=== PATIENT | male | born 1990 | race African-American/Black ===

== ENCOUNTER 2020-12-16 04:56 | Emergency (ER) | payer BC ==
--- NOTE | 2020-12-16 05:36 | EDM.PDOC ---
ED HPI GENERAL MEDICAL PROBLEM - General Chief Complaint: Respiratory Problem Stated Complaint: HEADACHE/CHILLS Time Seen by Provider: 12/16/20 05:14 Source of Information: Reports: Patient History Limitations: Reports: No Limitations - History of Present Illness INITIAL COMMENTS - FREE TEXT/NARRATIVE: Mr. Alfaro is a very pleasant 30-year-old gentleman who now presents the ED stating that he has had body aches, lethargy, a headache, a nonproductive cough, dyspnea, a sore throat, and chills without fever since , 12/13/2020. He denies a loss of taste or smell, nausea, vomiting, constipation, or diarrhea. He has been taking DayQuil, NyQuil, and Sanchez's cough syrup, which he thought was working, up until this morning. Here in the ED, the patient's initial BP is found to be slightly elevated at 136/102, otherwise, he is hemodynamically stable, afebrile, saturating 96% on room air. He appears to be relatively comfortable, in no acute distress. Prior to , the patient denies having a recent fever, chills, sore throat, ear pain, nasal or sinus congestion, cough, dyspnea, chest pain, palpitations, nausea, vomiting, constipation, diarrhea, abdominal pain, urinary symptoms, recent weight gain or weight loss, recent bloody bowel movements or black bowel movements, recent joint aches, headaches, or rashes. The patient does not have a PCP. He has not received a COVID vaccination. Headache Pain Score (Numeric/FACES): 4 - Related Data Allergies Allergy/AdvReac Type Severity Reaction Status Date / Time pollen extracts Allergy Other Verified 12/16/20 05:13 Home Meds: Home Meds . [No Known Home Meds] 12/16/20 [History] Past Medical History HEENT History: Reports: Allergic Rhinitis Endocrine/Metabolic History: Reports: Obesity/BMI 30+ Social & Family History - Tobacco Use Tobacco Use Status *Q: Never Tobacco User - Alcohol Use Alcohol Use History: Yes Alcohol Use Frequency: Socially (occasionally to excess) - Recreational Drug Use Recreational Drug Use: Yes Drug Use in Last 12 Months: No Recreational Drug Type: Reports: Marijuana/Hashish (last smoked 2018) - Living Situation & Occupation Living situation: Reports: Single, Other (Roommate) Occupation: Employed (charter driver) ED ROS GENERAL - Review of Systems Review Of Systems: Comprehensive ROS is negative, except as noted in HPI. ED EXAM, GENERAL - Physical Exam Exam: See Below Exam Limited By: No Limitations General Appearance: Alert, WD/WN, No Apparent Distress Eye Exam: Bilateral Eye: EOMI, Normal Inspection Ears: Normal External Exam, Normal Canal, Hearing Grossly Normal, Normal TMs Nose: Normal Inspection, Normal Mucosa, No Blood Throat/Mouth: Normal Inspection, Normal Lips, Normal Teeth, Normal Gums, Normal Oropharynx, Normal Voice, No Airway Compromise Head: Atraumatic, Normocephalic Neck: Normal Inspection, Supple, Non-Tender, Full Range of Motion. No: Lymphadenopathy (L), Lymphadenopathy (R) Respiratory/Chest: No Respiratory Distress, Lungs Clear, Normal Breath Sounds, No Accessory Muscle Use. No: Decreased Breath Sounds, Crackles, Rhonchi, Wheezing, Stridor, Prolonged Expiration Cardiovascular: Normal Peripheral Pulses, Regular Rate, Rhythm, No Edema, No Gallop, No JVD, No Murmur, No Rub Peripheral Pulses: 3+: Radial (L), Radial (R) GI/Abdominal: Normal Bowel Sounds, Soft, Non-Tender, No Organomegaly, No Distention, No Abnormal Bruit, No Mass Back Exam: Normal Inspection, Full Range of Motion, NT Extremities: Normal Inspection, Normal Range of Motion, No Pedal Edema, Normal Capillary Refill Neurological: Alert, Oriented, Normal Cognition, No Motor/Sensory Deficits Psychiatric: Normal Affect Skin Exam: Warm, Dry, Intact, Normal Color, No Rash Course - Vital Signs Last Recorded V/S: Last Vital Signs Temp 37.3 C 12/16/20 05:14 Pulse 93 12/16/20 05:14 Resp 15 12/16/20 05:14 BP 136/102 H 12/16/20 05:14 Pulse Ox 96 12/16/20 05:14 - Orders/Labs/Meds Orders: Active Orders 24 hr Category Date Time Status Chest 1V Frontal [CR] Stat Exams 12/16/20 05:29 Taken Isolation [COMM] Routine Oth 12/16/20 05:30 Ordered Labs: Laboratory Tests 12/16/20 12/16/20 12/16/20 Range/Units 05:35 06:10 06:10 WBC 3.88 L (4.23-9.07) K/mm3 RBC 4.66 (4.63-6.08) M/mm3 Hgb 14.2 (13.7-17.5) gm/dl Hct 43.7 (40.1-51.0) % MCV 93.8 H (79.0-92.2) fl MCH 30.5 (25.7-32.2) pg MCHC 32.5 (32.2-35.5) g/dl RDW Std Deviation 46.5 H (35.1-43.9) fL Plt Count 216 (163-337) K/mm3 MPV 10.3 (9.4-12.3) fl Neutrophils % (Manual) 20 L (40-60) % Band Neutrophils % 0 (0-10) % Lymphocytes % (Manual) 48 H (20-40) % Atypical Lymphs % 22 % Monocytes % (Manual) 6 (2-10) % Eosinophils % (Manual) 2 (0.8-7.0) % Basophils % (Manual) 2 H (0.2-1.2) Platelet Estimate Adequate Plt Morphology Comment Normal RBC Morph Comment Normal Sodium 144 (136-145) mEq/L Potassium 3.9 (3.5-5.1) mEq/L Chloride 109 H (98-107) mEq/L Carbon Dioxide 23 (21-32) mEq/L Anion Gap 15.9 H (5-15) BUN 11 (7-18) mg/dL Creatinine 1.0 (0.7-1.3) mg/dL Est Cr Clr Drug Dosing 99.24 mL/min Estimated GFR (MDRD) > 60 (>60) mL/min BUN/Creatinine Ratio 11.0 L (14-18) Glucose 102 H (70-99) mg/dL Calcium 8.2 L (8.5-10.1) mg/dL Total Bilirubin 0.3 (0.2-1.0) mg/dL AST 255 H (15-37) U/L ALT 116 H (16-63) U/L Alkaline Phosphatase 51 (46-116) U/L C-Reactive Protein 1.1 H* (<1.0) mg/dL Total Protein 6.8 (6.4-8.2) g/dl Albumin 3.6 (3.4-5.0) g/dl Globulin 3.2 gm/dL Albumin/Globulin Ratio 1.1 (1-2) SARS-CoV-2 RNA (LUPIS) Negative (NEGATIVE) Group A Strep (PCR) Not detected (NOT DETECT) - Re-Assessments/Exams Free Text/Narrative Re-Assessment/Exam: 12/16/20 05:31 I collected a group A strep by PCR swab. I have ordered a work-up that includes some blood work, a swab for the SARS-CoV-2 virus and influenza A + B, and a portable chest x-ray. 12/16/20 06:59 Portable chest radiograph reviewed. Poor inspiratory effort. The cardiac silhouette is within normal limits. No pulmonary vascular congestion. No pleural effusions seen on this AP view. No focal infiltrate. No pneumothorax. Formal read per the Radiologist pending. 12/16/20 07:09 The patient's CBC is remarkable for leukopenia of 3.88, with remainder of his CBC being unremarkable. His CMP is remarkable for slight hyperglycemia of 102, and is otherwise unremarkable. His CRP is mildly elevated at 1.1. His swab for group A strep by PCR is negative. His swab for the SARS-CoV-2 virus is negative. His swab for influenza A + B negative for both. 12/16/20 07:14 Test results discussed with the patient. As above, today's work-up is grossly unremarkable, however, I explained to the patient that that does not mean that he does not have COVID-19 - he still might, despite having a negative test, since the sensitivity of the test is poor early in the course of the illness. It is nearly 100% sensitive 5 to 7 days in the course of the illness, however, therefore I am recommending that the patient strictly isolate, then get retested this coming , 12/20/2020. I will provide a note for him to be off work through Thursday. I recommended that the patient take OTC ibuprofen as needed for discomfort, but to stop taking the OTC cough and cold remedies, as they have been shown to be of no benefit. The patient expressed understanding and agreement. Departure - Departure Time of Disposition: 07:16 Disposition: Home, Self-Care 01 Condition: Good Clinical Impression: Viral illness - Discharge Information *PRESCRIPTION DRUG MONITORING PROGRAM REVIEWED*: Not Applicable *COPY OF PRESCRIPTION DRUG MONITORING REPORT IN PATIENT GRACIELA: Not Applicable Instructions: Viral Illness, Adult Referrals: PCP,None [Primary Care Provider] - Forms: ED Department Discharge, ED Return to Work/School Form Additional Instructions: You were seen in the emergency room for 2 days of a sore throat, body aches, chills, lethargy, headache, a dry cough, and shortness of breath. Work-up in the ER included several blood tests, swabs for strep, influenza, and the SARS-CoV-2 virus, and a chest x-ray. Your work-up was grossly unremarkable. You do not have pneumonia. As discussed, a negative test for the SARS-CoV-2 virus early in the course of the illness does not mean that you do not have COVID-19. You still might, however, it may be too early to test positive. We therefore recommend that you get retested this coming , 12/20/2020. It is very important that you quarantine until you test negative on . If you test positive on , you will need to strictly isolate until you test negative, which is typically 10 days after the onset of your symptoms. A note to be off work through 12/21/2020 has been provided to you. We recommend that you take [id number] ibuprofen as needed for discomfort, however, we recommend that you discontinue the [id number] cough and cold remedies, as they have been shown to be of no benefit, but do have side effects, such as an upset stomach. If any other problems, including worsening of your symptoms, please do not hesitate to return to the ER. Sepsis Event Note (ED) - Evaluation Sepsis Screening Result: No Definite Risk - Focused Exam Vital Signs: Vital Signs Temp Pulse Resp BP Pulse Ox 12/16/20 05:14 37.3 C 93 15 136/102 H 96 - My Orders Last 24 Hours: My Active Orders 12/16/20 05:29 Chest 1V Frontal [CR] Stat 12/16/20 05:30 Isolation [COMM] Routine - Assessment/Plan Last 24 Hours: My Active Orders 12/16/20 05:29 Chest 1V Frontal [CR] Stat 12/16/20 05:30 Isolation [COMM] Routine
[2020-12-16 06:11] LABS: STREP A BY PCR NOT DETECTED (NOT DETECT)
[2020-12-16 06:34] LABS: CORONAVIRUS COVID-19 NAA NEGATIVE (NEGATIVE)
--- NOTE | 2020-12-16 09:12 | CR ---
Chest: Frontal view of the chest was obtained. Comparison: No prior chest imaging is available. Heart size and mediastinum are normal. Lungs are clear with no acute parenchymal change. Bony structures show nothing acute. Impression: 1. Nothing acute is appreciated on 2 view chest x-ray. Diagnostic code #1
== END 2020-12-16 07:35 | disposition home or self-care (01) ==
LOC: JD.ED 04:56
DX: B34.9 Viral infection, unspecified (principal); E66.9 Obesity, unspecified; Z20.822 Contact with and (suspected) exposure to COVID-19; Z88.8 Allergy status to other drugs, medicaments and biological substances; Z68.35 Body mass index [BMI] 35.0-35.9, adult
CPT/HCPCS: 36415; 71045; 71045-26; 80053; 85007; 85027; 86140; 87651-QW; 87804; 99285-25; U0002